=== PATIENT | female | born 1995 | race African-American/Black ===

== ENCOUNTER 2021-06-05 09:29 | Outpatient (CLI) | payer OTHER | END 2021-06-05 10:45 | disposition home or self-care (01) | LOC: PRENATAL 09:29 | PROVIDERS: ATTEND Obstetrics & Gynecology Maternal & Fetal Medicine | DX: O35.0XX0 Maternal care for (suspected) central nervous system malformation in fetus, not applicable or unspecified (principal); O35.3XX0 Maternal care for (suspected) damage to fetus from viral disease in mother, not applicable or unspecified ==